=== PATIENT | male | born 1990 | race Caucasian/White ===

== ENCOUNTER 2016-07-03 08:26 | Emergency (ER) | payer OTHER ==
[2016-07-03 08:39] VITALS: BP 150/88; PULSE 94; RESP 16; TEMP 100.4; O2SAT 94
--- NOTE | 2016-07-03 08:54 | UCPHY ---
H & P Time Seen by Provider: 07/03/16 08:30 Patient Type: New HPI/ROS: This patient describes onset of illness 2 days ago with myalgias followed by mild nasal congestion and cough. He describes the cough is a dry hacking cough and has a mild sore throat in addition. He has had associated chills and fevers. He took 400 mg of ibuprofen at 7:00 a.m. this morning with partial improvement and notes no other exacerbating or alleviating factors. ROS: No significant fatigue. HEENT: No ear pain. No facial pain. Pulmonary: No pleuritic pain. No significant dyspnea. Cardiovascular: No leg swelling or calf pain. GI: No vomiting or diarrhea. Integumentary: No skin rash. 7 point ROS is otherwise negative. Past Medical/Surgical History: Otherwise healthy Smoking Status: Never smoked Physical Exam: Physical Exam Vital signs are normal. General: No acute distress HEENT: Nose: Clear discharge bilaterally. No sinus tenderness to percussion. Ears: External canals and tympanic membranes are clear with no erythema or abnormal findings bilaterally. Oropharynx: No erythema or exudates. No dysphonia. No drooling or stridor. Eyes: Pupils equal and react to light. Extraocular motions are intact. Neck: Supple with no meningismus Lungs: Clear to auscultation bilaterally with no rales. Minimal expiratory wheeze. Minimal rhonchi. No respiratory distress. Cardiac: Regular rate and rhythm with no murmur gallop or rub no calf swelling or tenderness. Skin: No rash or pallor. Neuro: Alert with no focal deficits noted. Initial differential diagnosis: Influenza, bronchitis URI with cough Constitutional: Initial Vital Signs Temperature (C) 38.0 C 07/03/16 08:36 Heart Rate 94 07/03/16 08:36 Respiratory Rate 16 07/03/16 08:36 Blood Pressure 150/88 H 07/03/16 08:36 O2 Sat (%) 94 07/03/16 08:36 O2 Delivery Mode Room Air Allergies/Adverse Reactions: Penicillins Allergy (Verified 07/03/16 08:36) Home Medications: Medication Instructions Recorded Albuterol Hfa Anes Only [Proair 2 puffs IH Q4 PRN #1 mdi 07/03/16 Hfa Icu (*)] Oseltamivir Phosphate [Tamiflu 75 75 mg PO BID #10 cap 07/03/16 mg (*)] Medical Decision Making ED Course/Re-evaluation: Influenza B is positive. Rapid strep is negative I counseled the patient regarding influenza. Patient appears nontoxic and should do well as an outpatient. - Data Points Laboratory Results: 07/03/16 07/03/16 07/03/16 Unknown 08:50 08:40 Influenza Typ A,B (DFA) POSITIVE FOR FLU B H (NEGATIVE) Group A Strep Screen NEGATIVE (NEGATIVE) Group A Strep DNA Pending Departure - Departure Disposition: Home, Routine, Self-Care Clinical Impression: Influenza B Condition: Good Instructions: Influenza (ED) Additional Instructions: Diagnosis: Influenza B Plan: Humidifier Ibuprofen-600 mg per 6 hours as needed for fevers or chills Tylenol in addition as needed Albuterol inhaler for cough, wheeze or shortness of breath No work until your fever has resolved for 24 hours more. Return for any significant worsening despite the treatment plan Referrals: NONE *PRIMARY CARE P,. [Primary Care Provider] - As per Instructions Stand Alone Forms: Work Excuse Prescriptions: Albuterol Hfa Anes Only [Proair Hfa Icu (*)] 2 puffs IH Q4 PRN #1 mdi PRN Reason: Wheezing Oseltamivir Phosphate [Tamiflu 75 mg (*)] 75 mg PO BID #10 cap - PQRS PQRS Measurement: NA
== END 2016-07-03 09:47 | disposition home or self-care (01) ==
LOC: CED 08:26
DX: J10.1 Influenza due to other identified influenza virus with other respiratory manifestations (principal)
CPT/HCPCS: 87400-PO; 87880-PO; 99203-PO; G0463-PO